=== PATIENT | female | born 1995 | race Caucasian/White ===

== ENCOUNTER 2023-12-04 15:01 | Inpatient (IN) ==
[2023-12-04] MEDS ORDERED: Lidocaine 1% VIAL 10 MG/ML 30 ML VIAL INJ PRN (16:38)
[2023-12-04 18:11] LABS: Urine Benzodiazepine Screen None Detected (None Detect); Urine Cannabinoids Screen None Detected (None Detect); Urine Opiates Screen None Detected (None Detect)
[2023-12-04 18:24] LABS: ABS Eosinophils 0.1 10^3/uL (0.0-0.5); ABS Lymphocytes 2.5 10^3/uL (1.0-4.8); ABS Monocytes 0.4 10^3/uL (0.0-0.9); ABS Neutrophils 9.1 10^3/uL (1.5-7.6); Eosinophil % 0.9 %; Hematocrit 37.5 % (35-45); Hemoglobin 12.4 g/dL (11.5-14.3); Lymphocyte % 20.4 %; Mean Corpuscular Hemoglobin 25.8 pg (27-33); Mean Corpuscular Hgb Conc 33.1 g/dL (31-36); Mean Corpuscular Volume 78.1 fL (80-97); Mean Platelet Volume 9.7 fL (7.5-11.2); Platelet Count 312 10^3/uL (150-450); Red Blood Count 4.81 10^6/uL (3.63-4.92); Red Cell Distribution Width 15.9 % (12-17); White Blood Count 12.1 10^3/uL (3.8-11.8)
[2023-12-04] MEDS: Lactated Ringers 1000 ml BAG 1,000 ML IV ONE (20:07)
[2023-12-04] MEDS ORDERED: Phenylephrine 40 mcg/mL 10mL (400mcg) SYRINGE IV PUSH PRN ×2 (20:49)
[2023-12-04] MEDS ORDERED: Sodium Citrate/Citric Acid LIQ 15 ML UDC PO PRN (20:49)
[2023-12-04 22:20] LABS: Urine Appearance Turbid; Urine Bilirubin Negative (Negative); Urine Blood Negative (Negative); Urine Color Yellow; Urine Glucose Negative (Negative); Urine Ketones Negative (Negative); Urine Nitrite Negative (Negative); Urine Protein Trace (Negative); Urine Specific Gravity 1.023 (1.002-1.030); Urine Urobilinogen Negative (Negative); Urine pH 7.5 (5.0-8.0)
[2023-12-05] MEDS ORDERED: Measles, Mumps,Rubella VACC 0.5 ML/VIAL SUBCUT ONE (01:08)
[2023-12-05] MEDS ORDERED: Glycerin ADULT 2.4 gm SUPP PR PRN (01:08)
[2023-12-05] MEDS ORDERED: Oxytocin in LR 20,000 MILLI.UNIT/1,000 ML BAG IV SCH (01:40)
[2023-12-05] MEDS: Oxytocin in LR 20,000 MILLI.UNIT/1,000 ML BAG IV ONE (01:44)
[2023-12-05] MEDS: Witch Hazel PAD JAR TOPICAL PRN (03:23)
[2023-12-05] MEDS: Dibucaine 1% OINT 28.35 GM TUBE PR PRN (03:23)
[2023-12-05] MEDS: Lidocaine 1.5% EPI 1:200,000 30 ML SDV ONE (09:18)
[2023-12-05] MEDS: OBEPIDURAL (200 ML) 200 ML EPIDURAL ONE (09:18)
[2023-12-05] MEDS: Buffered Lidocaine 1% SYRIN 1 ml INTRADERM ONE (09:19)
[2023-12-05] MEDS: Lactated Ringers 1000 ml BAG 1,000 ML IV SCH ×2 (09:19→10:42)
[2023-12-05] MEDS: OBEPIDURAL (200 ML) 200 ML EPIDURAL SCH (10:43)
[2023-12-05] MEDS: Lactated Ringers 1000 ml BAG 1,000 ML IV ONE (10:43)
[2023-12-05] MEDS: Measles, Mumps,Rubella VACC 0.5 ML/VIAL SUBCUT ONE (21:21)
[2023-12-06 08:07] LABS: ABS Basophils 0.1 10^3/uL (0.0-0.1); ABS Eosinophils 0.2 10^3/uL (0.0-0.5); ABS Lymphocytes 3.2 10^3/uL (1.0-4.8); ABS Monocytes 0.5 10^3/uL (0.0-0.9); ABS Neutrophils 6.9 10^3/uL (1.5-7.6); ABS Nucleated RBC 0.01 10^3/ul; Eosinophil % 2.1 %; Hematocrit 31.3 % (35-45); Hemoglobin 10.3 g/dL (11.5-14.3); Lymphocyte % 29.6 %; Mean Corpuscular Hemoglobin 25.6 pg (27-33); Mean Corpuscular Volume 77.7 fL (80-97); Mean Platelet Volume 8.4 fL (7.5-11.2); Nucleated Red Blood Cells % 0.1 %/100WBC (0.0-0.8); Platelet Count 270 10^3/uL (150-450); Red Blood Count 4.03 10^6/uL (3.63-4.92); Red Cell Distribution Width 16.3 % (12-17); White Blood Count 10.9 10^3/uL (3.8-11.8)
[2023-12-06 08:31] VITALS: BP 103/57
== END 2023-12-06 14:13 | disposition home or self-care (01) | DRG 807 ==
LOC: MCHOBOUT 15:01 → MCHOB 16:35
PROVIDERS: ADMIT Midwife; ATTEND Midwife